=== PATIENT | female | born 1995 | race Caucasian/White ===

== ENCOUNTER 2025-01-06 10:22 | Outpatient (REF) | payer MEDICAID, SELFPAY ==
--- NOTE | 2025-01-06 07:18 | UVULA_PTH ---
PATIENT: Julienne Kim LOC: [facility] U#:[id number] AGE/SX: 29/F ROOM: RE01/06/[address]: Elver Bliss MD : 1995 BED: DIS: 01/06/2025 SPEC #: [id number] RECD: 01/06/25 17:23 STATUS: ESPERANZA REQ #: [id number] PERLITA: 01/06/25 07:[address]: Elver Bliss DEPT: Surgical Specimen RECD BY: Linda Orozco ENTERED: 01/06/25 17:24 SP TYPE: UVULA OTHR DR: Melani Stark Tissues: 1 - UVULA Procedures: GROSS AND MICRO LEVEL 3 Comments: [id number]
== END 2025-01-06 10:23 | disposition home or self-care (01) ==
LOC: NCHCN 10:22
PROVIDERS: PCP Nurse Practitioner; Visit Provider Otolaryngology
DX: K13.70 Unspecified lesions of oral mucosa (principal); D44.0 Neoplasm of uncertain behavior of thyroid gland
CPT/HCPCS: 88304

== ENCOUNTER 2025-01-18 11:29 | Outpatient (CLI) | payer MEDICAID, SELFPAY ==
--- NOTE | 2025-01-18 11:15 | DI.US_ITS ---
Exam(s) US NEEDLE LOCAL OTHER WO RAD EXAM: left-sided thyroid nodule, nontoxic single thyroid nodule, E04.1 COMPARISON: No exams were available for comparison TECHNIQUE: Ultrasound performed using standard protocol. FINDINGS: Sonography was provided for Dr. Bliss during the performance of a left thyroid nodule biopsy. Please refer to the procedure report for complete details. DATA REPOSITORY:
--- NOTE | 2025-01-18 11:30 | PAPNONF_PTH ---
PATIENT: Julienne Kim LOC: [facility] U#:[id number] AGE/SX: 29/F ROOM: RE01/18/[address]: Elver Bliss MD : 1995 BED: DIS: 01/18/2025 SPEC #: [id number] RECD: 01/18/25 13:10 STATUS: ESPERANZA REQ #: [id number] PERLITA: 01/18/25 11:[address]: Elver Bliss DEPT: [facility] Cytology RECD BY: Linda Orozco ENTERED: 01/18/25 13:11 SP TYPE: CATHIE VELA DR: Melani Stark Tissues: 1 - BODY FLUID CYTO-FINE NEEDLE ASPIRATE-[facility] Procedures: BODY FLUID CYTO-FINE NEEDLE ASPIRATE-[facility] Comments: [id number] (PATH FNA CONSULT) (REFRIGERATED)
--- NOTE | 2025-01-18 13:07 | W.PROCNOTE ---
Date of service: 01/18/25 Time of Service: 13:07 Procedure Note Date of procedure: 01/18/25 Procedure: Ultrasound-guided FNA, left thyroid nodule, pathology present Surgeon/Proceduralist/Physician: Elver Bliss Procedure Diagnosis: Left thyroid nodule Procedure Indications: Patient has a left-sided thyroid nodule meeting criteria for biopsy. Options were explained the patient regarding the regimen. She elected to undergo FNA. Risks and benefits as well as the procedure were discussed at length. Consent was filled out and signed. The below was then performed. Procedure Description: The patient was positioned in a supine position with her neck slightly extended. Ultrasound was used to localize the nodule on the left after the patient was prepped and draped in appropriate fashion. 2% lidocaine with 1/100,000 epinephrine was injected in the skin and subcutaneous tissues overlying the thyroid nodule and then a 25-gauge needle passed repeatedly into the thyroid nodule. The specimen was handed to pathology who verified cellular adequacy. After ensuring adequate cellularity, 2 additional passes were made for potential Afirma testing. After ensuring adequate hemostasis, a sterile dressing was applied and the patient was allowed to sit, stand, and ambulate afterwards. Her vital signs remained stable. She will remove the bandage in a couple of hours and not replace it. She will avoid anything strenuous today. She will call if she does not hear from me within 1 week. She will call with any signs of infection or any concerns at the biopsy site. She will use ibuprofen or Tylenol if needed for pain. She had no further questions. She is comfortable with this plan.
== END 2025-01-18 11:49 ==
LOC: DI 11:30
PROVIDERS: PCP Nurse Practitioner; Visit Provider Otolaryngology
DX: E04.1 Nontoxic single thyroid nodule (principal)
CPT/HCPCS: 10005; 76942; 88104